=== PATIENT | male | born 1980 | race Caucasian/White ===

== ENCOUNTER 2025-05-27 15:51 | Emergency (ER) | payer MEDICAID ==
[~2025-05-27] VITALS: Ht 172.7 cm; Wt 98.0 kg
[2025-05-27 15:59] VITALS: TEMP 36.7; O2SAT 99
[2025-05-27] MEDS ORDERED: NAPR-679 MT (17:42)
[2025-05-27] MEDS ORDERED: CYCL10TA21 MT (17:42)
[2025-05-27] MEDS ORDERED: LIDO-53 TP (17:42)
[2025-05-27] MEDS: LIDOCAINE 5% PATCH TOP SCH (17:58)
[2025-05-27] MEDS: KETOROLAC 30MG/ML VIAL IM ONE (17:58)
[2025-05-27] MEDS: ONDANSETRON 4MG ODT PO ONE (17:58)
[2025-05-27 18:08] VITALS: BP 135/84; PULSE 66; RESP 18; O2SAT 97
== END 2025-05-27 18:09 | disposition home or self-care (01) ==
LOC: ER 15:51
DX: S16.1XXA Strain of muscle, fascia and tendon at neck level, initial encounter (principal); I10 Essential (primary) hypertension; Z90.49 Acquired absence of other specified parts of digestive tract; X58.XXXA Exposure to other specified factors, initial encounter; Y93.89 Activity, other specified; Y92.89 Other specified places as the place of occurrence of the external cause; Y99.8 Other external cause status
CPT/HCPCS: 96372; 99283; Q0162; J1885; Z7610